=== PATIENT | male | born 1980 | race Caucasian/White ===

== ENCOUNTER → 2021-12-12 | Outpatient (CLI) | payer BC ==
--- NOTE | 2021-12-12 11:08 | CA ---
Stress Echo Report Eliel Peng Age: 41 Gender: M : 1980 Exam Date: 12/12/2021 10:30 Exam Location: [facility] Ht (in): 76 Wt (lb): 235 Ordering Physician: Henrry Reece DO Referring Physician: Henrry Reece DO Coordinator Of Health Services: Demi Monreal RDCS Technologist Procedure CPT: Indication: R06.09 Other forms of dyspnea ICD-9 Codes: Rhythm: Patient History: Cardiac Medications: Medications in past 24 hours: Contrast: Lumason Stress Results Protocol: Anton Total dose(mL): 5 Exercise Duration (min:sec): [address] Depression (mm): Angina Score: [place] Score: METS: 10.5 Resting HR: 82 Resting BP: 146 / 82 Peak HR: 160 Peak BP: 226 / 68 Max Predicted HR: 178 90 % Max Predicted HR Target HR: 151 Double Product: [id number] Stress Summary: BP Response: Reason for Termination: Pt reached target hr. Cardiac Symptoms: No symptoms ECG Analysis Resting ECG: Stress ECG: Arrhythmia: Echo Analysis Resting Echo: Peak Echo Analysis: MEASUREMENTS (Male/Female) Normal Values CONCLUSIONS Excellent exercise tolerance Normal EKG in response to exercise Normal echocardiogram in response to exercise Dr. Luis Enrique Borjas MD (Electronically Signed) Final Date: 12 December 2021 11:07
--- NOTE | 2021-12-12 11:33 | XR ---
EXAMINATION TYPE: XR chest 2V DATE OF EXAM: 12/12/2021 COMPARISON: NONE TECHNIQUE: PA and lateral views submitted. HISTORY: Shortness of breath FINDINGS: The lungs are clear and there is no pneumothorax, pleural effusion, or focal pneumonia. Mild hyperi nflation correlate for asthma or COPD. IMPRESSION: 1. Mild hyperinflation related to asthma or COPD.
== END | disposition home or self-care (01) ==
LOC: RADNMMAIN 09:40
PROVIDERS: ATTEND Family Medicine
DX: R06.09 Other forms of dyspnea (principal)
CPT/HCPCS: 93351; 71046; Q9950

== ENCOUNTER → 2022-04-03 | Outpatient (CLI) | payer BC ==
--- NOTE | 2022-04-03 22:41 | MR ---
EXAMINATION TYPE: MR cspine/lspine wo con DATE OF EXAM: 04/03/2022 COMPARISON: NONE HISTORY: Neck and lower back pain, headaches. Spinal cord disease cervical spine and lumbar radiculop athy per order. TECHNIQUE: Multiplanar, multisequence imaging of the cervical and lumbar spine are performed without IV contrast. FINDINGS: Cervical spine: FINDINGS: Sagittal images of the cervical spine show the craniocervical junction to appear within nor mal limits. The cervical and upper thoracic spinal cord is normal in course, caliber, and signal. Al ignment is straightened with slight grade 1 retrolisthesis C3 on C4, in C4 and C5 identified. Mild d isc space narrowing C4-C5 level otherwise The vertebral body and intravertebral disk heights are norm al. The bone marrow signal intensity is within normal limits. Axial images show C2-C3 level to appear within normal limits. Axial images at C3-C4 level show focal central disc protrusion effacing the anterior thecal sac and n early up to ventral surface of spinal cord and uncovertebral facet degenerative changes causing asymm etric mild to moderate left-sided neural foraminal narrowing. Axial images at C4-C5 level shows broad-based right paracentral disc protrusion effacing the anterola teral thecal sac of the ventral surface of the spinal cord which is slightly flattened along with unc overtebral facet degenerative changes causing moderate to severe bilateral neural foraminal narrowing . Axial images at C5-C6 level broad-based right paracentral/foraminal disc protrusion effacing the ante rolateral thecal sac and causing asymmetric moderate right greater than left bilateral neural foramin al narrowing. Axial images at C6-C7 and C7-T1 levels appear within normal limits. IMPRESSION: Multilevel spondylolisthesis and degenerative change in the cervical spine greatest at an d C3-C4 through the C5-C6 levels as detailed above. Lumbar spine: Sagittal images of the lumbar spine show vertebral body heights and alignment to appear satisfactory. There is multilevel disc desiccation and mild to moderate multilevel disc space narrowing. The conu s medullaris is normal in position and signal ending at the mid-L1 level. The bone marrow signal int ensity is within normal limits. Axial images at the T12-L1 level appear within normal limits. Axial images at the L1-L2 levels [id number] broad disc bulge minimally effacing the anterior th ecal sac and mild facet arthropathy bilaterally. Patent bilateral neural foramina. Axial images at L2-L3 level show mild broad disc bulge minimally effacing the anterior thecal sac. Pa tent bilateral neural foramina. Axial images at L3-L4 levels show [id number] broad disc bulge minimally effacing the anterior t hecal sac with mild facet arthropathy bilaterally. Patent bilateral neural foramina. Axial images at L4-L5 level shows mild facet arthropathy bilaterally. Spinal canal is preserved. Axial images at L5-S1 level show mild facet arthropathy bilaterally. Spinal canal is preserved. Paraspinal muscle bulk is maintained. IMPRESSION: [id number] multilevel degenerative changes in the lumbar spine as detailed above.
== END | disposition home or self-care (01) ==
LOC: RADMRIMAIN 16:28
PROVIDERS: ATTEND Family Medicine
DX: M43.12 Spondylolisthesis, cervical region (principal); M47.12 Other spondylosis with myelopathy, cervical region; M47.26 Other spondylosis with radiculopathy, lumbar region; M51.16 Intervertebral disc disorders with radiculopathy, lumbar region; G95.9 Disease of spinal cord, unspecified
CPT/HCPCS: 72141; 72148

== ENCOUNTER → 2022-05-17 | Outpatient (CLI) | payer BC ==
--- NOTE | 2022-05-17 12:53 | CT ---
EXAMINATION TYPE: CT soft tissue neck w con DATE OF EXAM: 05/17/2022 COMPARISON: None HISTORY: 42-year-old male R09.89 Other specified symptoms and signs involving the circ. Patient state s that he feels he has food stuck in his throat since last night. Rule out foreign body. TECHNIQUE: Contiguous axial scanning of the soft tissues of the neck performed with IV Contrast, tyrone ent injected with 70cc mL of Isovue 300. Coronal/sagittal reconstructions performed. CT DLP: 692 mGycm Automated exposure control for dose reduction was used. FINDINGS: Visualized intracranial structures, orbits and globes, and mastoid air cells are clear. There is a 1.2 cm mucosal retention cyst along the anterior floor of the left maxillary sinus along w ith mild mucosal thickening. Leftward nasal septal deviation. Nasopharynx is clear. Some asymmetric prominence to the left palatine tonsils along with a couple tonsilloliths on the left measuring up to 4 mm. Mild bilateral lingual tonsillar hypertrophy. Otherwise, epiglottis and prevertebral soft tissues are satisfactory. Unable to identify a discrete foreign body within the visualized hypopharynx, cervical esophagus, or upper most thoracic esophagus. The thyroid and submandibular glands as well as the parotid glands are satisfactory. Scattered nonenlarged cervical lymph nodes in both sides. Bones: Disc osteophyte complexes at C3-C4 and C4-C5 may contribute to moderate focal spinal canal ector noses. IMPRESSION: 1. SOME ASYMMETRIC PROMINENCE TO THE LEFT PALATINE TONSIL WITH A COUPLE TONSILLOLITHS MEASURING UP TO 4 MM. 2. MILD BILATERAL LINGUAL TONSILLAR HYPERTROPHY. 3. UNABLE TO IDENTIFY A DISCRETE FOREIGN BODY WITHIN THE VISUALIZED HYPOPHARYNX, CERVICAL ESOPHAGUS, OR UPPER MOST THORACIC ESOPHAGUS. 4. MILD CHRONIC LEFT MAXILLARY SINUS DISEASE.
== END | disposition home or self-care (01) ==
LOC: RADCTMAIN 11:37
PROVIDERS: ATTEND Family Medicine
DX: J35.1 Hypertrophy of tonsils (principal); J32.0 Chronic maxillary sinusitis; R09.89 Other specified symptoms and signs involving the circulatory and respiratory systems
CPT/HCPCS: 70491; Q9967